=== PATIENT | male | born 2005 | race Caucasian/White ===

== ENCOUNTER 2025-06-20 06:23 | Emergency (ER) | payer BC ==
[~2025-06-20] VITALS: Ht 177.8 cm; Wt 82.0 kg
[2025-06-20 06:37] VITALS: O2SAT 99
[2025-06-20] MEDS: ONDANSETRON HCL 4MG/2ML INJ IV ONE (07:14)
[2025-06-20 08:01] LABS: BASOPHILS % 0.1 % (0.0-2.0); EOSINOPHILS % 0.3 % (0.0-5.0); HEMATOCRIT. 38.9 % (42.0-52.0); HEMOGLOBIN. 13.2 g/dL (14.0-18.0); LYMPHOCYTES % 20.7 % (20.0-50.0); MEAN PLATELET VOLUME 9.7 fl (7.4-10.4); MONOCYTES % 4.5 % (2.0-8.0); NEUTROPHILS % 74.4 % (40.0-76.0); PLATELET 143 x1000/uL (130-400); RED BLOOD CELL COUNT 4.52 mill/uL (4.7-6.1); RED CELL DISTRIBUTION WIDTH 12.4 % (11.6-14.6)
[2025-06-20 08:19] LABS: CREATININE 0.9 mg/dL (0.6-1.3)
[2025-06-20 08:20] LABS: UREA NITROGEN BLOOD 6 mg/dL (9-23)
[2025-06-20 08:21] LABS: ASPARTATE AMINOTRANSFERASE 16 IU/L (<34)
[2025-06-20 08:22] LABS: BILIRUBIN DIRECT 0.3 mg/dL (<=3.0); BILIRUBIN TOTAL 0.7 mg/dL (0.1-1.0); PROTEIN TOTAL 7.1 g/dL (6.0-8.3)
[2025-06-20 08:47] LABS: CLARITY URINE CLEAR (CLEAR); COLOR URINE YELLOW (YELLOW); GLUCOSE URINE NEGATIVE (NEGATIVE); KETONES URINE NEGATIVE (NEGATIVE); LEUKOCYTE ESTERASE URINE NEGATIVE (NEGATIVE); NITRITE URINE NEGATIVE (NEGATIVE); OCCULT BLOOD URINE NEGATIVE (NEGATIVE); PH URINE 6.0 (4.5-8.0); PROTEIN URINE NEGATIVE (NEGATIVE); SPECIFIC GRAVITY URINE 1.012 (1.005-1.030); UROBILINOGEN URINE 0.2 E.U./dL (0.2-1.0)
[2025-06-20] MEDS ORDERED: TOPUD PO (09:04)
[2025-06-20] MEDS ORDERED: ONDA4TAB50 PO (09:04)
[2025-06-20 09:25] VITALS: BP 129/68; PULSE 69; RESP 20; TEMP 36.7; O2SAT 99
[2025-06-20] MEDS: ACETAMINOPHEN 325MG TABLET PO ONE (09:26)
== END 2025-06-20 09:30 | disposition home or self-care (01) ==
LOC: ER 06:23
DX: G43.909 Migraine, unspecified, not intractable, without status migrainosus (principal); K92.0 Hematemesis; K92.1 Melena; Z79.899 Other long term (current) drug therapy
CPT/HCPCS: 99283; 96374; 80076; 80048; 81003; 83690; 85025; 86850; 86900; 86901; 36415; J2405